=== PATIENT | male | born 1995 | race Caucasian/White ===

== ENCOUNTER 2020-11-26 06:38 | Emergency (ER) | payer MEDICAID, OTHER ==
[~2020-11-26] VITALS: Ht 175.3 cm; Wt 77.0 kg
[2020-11-26 07:15] LABS: CLARITY URINE CLEAR (CLEAR); COLOR URINE YELLOW (YELLOW); KETONES URINE NEGATIVE (NEGATIVE); LEUKOCYTE ESTERASE URINE NEGATIVE (NEGATIVE); NITRITE URINE NEGATIVE (NEGATIVE); OCCULT BLOOD URINE NEGATIVE (NEGATIVE); PH URINE 6.5 (4.5-8.0); PROTEIN URINE NEGATIVE (NEGATIVE); SPECIFIC GRAVITY URINE 1.025 (1.005-1.030)
[2020-11-26 07:15] LABS: BASOPHILS % 0.2 % (0.0-2.0); EOSINOPHILS % 0.2 % (0.0-5.0); HEMATOCRIT. 47.3 % (42.0-52.0); HEMOGLOBIN. 16.3 g/dL (14.0-18.0); LYMPHOCYTES % 10.5 % (20.0-50.0); MEAN CORPUSCULAR HEMOGLOBIN 31.8 pg (28.0-32.0); MEAN PLATELET VOLUME 9.3 fl (7.4-10.4); MONOCYTES % 7.3 % (2.0-8.0); NEUTROPHILS % 81.8 % (40.0-76.0); PLATELET 133 x1000/uL (130-400); RED BLOOD CELL COUNT 5.14 mill/uL (4.7-6.1); RED CELL DISTRIBUTION WIDTH 12.9 % (11.6-14.6)
[2020-11-26 07:18] LABS: CHLORIDE 104 mEq/L (98-107)
[2020-11-26 07:22] LABS: ETHANOL BLOOD < 10 mg/dL
[2020-11-26 07:32] LABS: OPIATES URINE SCREEN NEGATIVE (NEGATIVE)
[2020-11-26 07:33] LABS: *BARBITURATES SCREEN URINE NEGATIVE (NEGATIVE); *BENZODIAZEPINES SCREEN URINE PRESUMTIVE POSITIVE (NEGATIVE); CANNABINOID URINE SCREEN PRESUMTIVE POSITIVE (NEGATIVE); METHADONE URINE SCREEN NEGATIVE (NEGATIVE)
[2020-11-26 07:34] LABS: *AMPHETAMINES SCREEN URINE NEGATIVE (NEGATIVE); *COCAINE SCREEN URINE NEGATIVE (NEGATIVE); PHENCYCLIDINE URINE SCREEN NEGATIVE (NEGATIVE)
[2020-11-26] MEDS ORDERED: TOPUD PO (08:36)
[2020-11-26] MEDS ORDERED: ACETAMINOPHEN 325MG TABLET PO ONE (08:45)
[2020-11-26 08:56] VITALS: BP 110/80
== END 2020-11-26 08:54 | disposition home or self-care (01) ==
LOC: ER 06:38
DX: R51.9 Headache, unspecified (principal); Z86.59 Personal history of other mental and behavioral disorders; Z98.890 Other specified postprocedural states
CPT/HCPCS: 36415; 70450; 70486; 80053; 80305; 80320; 81003; 82962; 85025; 99285; Z7610; G0480

== ENCOUNTER 2025-06-13 17:40 | Emergency (ER) | payer MEDICARE, MEDICAID ==
[~2025-06-13] VITALS: Ht 177.8 cm; Wt 75.0 kg
[~2025-06-13 17:40] MED LIST: TOPUD PO
[2025-06-13 17:50] VITALS: O2SAT 98
[2025-06-13 18:13] LABS: CLARITY URINE CLEAR (CLEAR); COLOR URINE YELLOW (YELLOW); GLUCOSE URINE TRACE (NEGATIVE); KETONES URINE 1+ (NEGATIVE); LEUKOCYTE ESTERASE URINE NEGATIVE (NEGATIVE); NITRITE URINE NEGATIVE (NEGATIVE); OCCULT BLOOD URINE NEGATIVE (NEGATIVE); PH URINE 6.0 (4.5-8.0); PROTEIN URINE NEGATIVE (NEGATIVE); SPECIFIC GRAVITY URINE 1.026 (1.005-1.030); UROBILINOGEN URINE 0.2 E.U./dL (0.2-1.0)
[2025-06-13 18:29] LABS: BACTERIA URINE TRACE; RBC URINE NONE SEEN /hpf (0-2); SQUAMOUS EPITHELIAL CELL URINE RARE /lpf (RARE/1+); WBC URINE 0-2 /hpf (0-2)
[2025-06-13] MEDS ORDERED: IBUP-1455 MT (19:35)
[2025-06-13] MEDS ORDERED: DOXY100C5 MT (19:35)
[2025-06-13 20:13] VITALS: BP 122/82; PULSE 79; RESP 14; TEMP 36.8; O2SAT 97
[2025-06-13] MEDS: CEFTRIAXONE SODIUM 500MG VIAL IM ONE (20:13)
== END 2025-06-13 20:16 | disposition home or self-care (01) ==
LOC: ER 17:40
DX: N50.819 Testicular pain, unspecified (principal)
CPT/HCPCS: 76870; 81003; 87491; 87591; 93976; 99284